=== PATIENT | male | born 2005 | race Two or more races ===

== ENCOUNTER 2024-05-29 17:30 | Emergency (ER) | payer MEDICAID ==
[~2024-05-29] VITALS: Ht 185.4 cm; Wt 61.0 kg
[2024-05-29 17:47] VITALS: O2SAT 99
[2024-05-29 21:10] LABS: CLARITY URINE TURBID (CLEAR); COLOR URINE ORANGE (YELLOW); GLUCOSE URINE NEGATIVE (NEGATIVE); KETONES URINE NEGATIVE (NEGATIVE); LEUKOCYTE ESTERASE URINE 2+ (NEGATIVE); NITRITE URINE POSITIVE (NEGATIVE); OCCULT BLOOD URINE 2+ (NEGATIVE); PH URINE 6.5 (4.5-8.0); PROTEIN URINE 2+ (NEGATIVE); SPECIFIC GRAVITY URINE 1.025 (1.005-1.030)
[2024-05-29 21:28] LABS: BACTERIA URINE 1+; RBC URINE TNTC /hpf (0-2); SQUAMOUS EPITHELIAL CELL URINE FEW /lpf (RARE/1+); WBC URINE 25-50 /hpf (0-2)
[2024-05-29] MEDS ORDERED: NAPR-1176 MT (22:14)
[2024-05-29] MEDS ORDERED: CEPH500C2 MT (22:16)
[2024-05-29] MEDS ORDERED: DOXY100C5 MT (22:16)
[2024-05-29] MEDS: CEFTRIAXONE SODIUM 500MG VIAL IM ONE (22:24)
[2024-05-29 22:29] VITALS: BP 124/79; PULSE 76; RESP 20; TEMP 36.7; O2SAT 97
[2024-06-01 04:07] LABS: CHLAMYDIA TRACHOMATIS NAA Negative (Negative); NEISSERIA GONORRHOEAE NAA Negative (Negative)
== END 2024-05-29 22:28 | disposition home or self-care (01) ==
LOC: ER 17:30
DX: N39.0 Urinary tract infection, site not specified (principal); Z79.1 Long term (current) use of non-steroidal anti-inflammatories (NSAID)
CPT/HCPCS: 99283; 87491; 87591; 81003; 87086; 87186; 87077; 96372; J0696

== ENCOUNTER 2024-09-06 20:45 | Emergency (ER) | payer MEDICAID, OTHER ==
[~2024-09-06] VITALS: Ht 180.3 cm; Wt 65.1 kg
[~2024-09-06 20:45] MED LIST: CEPH500C2 MT; DOXY100C5 MT
[2024-09-06 20:57] VITALS: O2SAT 100
[2024-09-06] MEDS: KETOROLAC 30MG/ML VIAL IM STA (22:42)
[2024-09-06 23:17] LABS: BASOPHILS % 1.2 % (0.0-2.0); EOSINOPHILS % 5.7 % (0.0-5.0); HEMOGLOBIN. 15.6 g/dL (14.0-18.0); LYMPHOCYTES % 53.7 % (20.0-50.0); MEAN CORPUSCULAR HEMOGLOBIN 31.8 pg (28.0-32.0); MEAN CORPUSCULAR HGB CONC 35.4 g/dL (31.0-37.0); MEAN CORPUSCULAR VOLUME 89.9 fL (80.0-94.0); MEAN PLATELET VOLUME 7.1 fl (7.4-10.4); MONOCYTES % 7.6 % (2.0-8.0); NEUTROPHILS % 31.8 % (40.0-76.0); PLATELET 399 x1000/uL (130-400); RED BLOOD CELL COUNT 4.89 mill/uL (4.7-6.1); RED CELL DISTRIBUTION WIDTH 12.3 % (11.6-14.6); WHITE BLOOD COUNT 4.8 x1000/uL (4.5-11.0)
[2024-09-06 23:27] LABS: CHLORIDE 104 mEq/L (98-107); SODIUM 141 mEq/L (136-145)
[2024-09-06 23:28] LABS: CALCIUM 9.8 mg/dL (8.7-10.4); CARBON DIOXIDE 30 mEq/L (21-32)
[2024-09-06 23:33] LABS: CREATININE 1.4 mg/dL (0.6-1.3); GLUCOSE 90 mg/dL (70-105); UREA NITROGEN BLOOD 12 mg/dL (9-23)
[2024-09-06 23:39] LABS: CLARITY URINE TURBID (CLEAR); COLOR URINE YELLOW (YELLOW); GLUCOSE URINE NEGATIVE (NEGATIVE); KETONES URINE TRACE (NEGATIVE); LEUKOCYTE ESTERASE URINE NEGATIVE (NEGATIVE); NITRITE URINE NEGATIVE (NEGATIVE); OCCULT BLOOD URINE NEGATIVE (NEGATIVE); PH URINE >=9.0 (4.5-8.0); PROTEIN URINE TRACE (NEGATIVE); SPECIFIC GRAVITY URINE 1.024 (1.005-1.030); UROBILINOGEN URINE 0.2 E.U./dL (0.2-1.0)
[2024-09-07 00:17] LABS: AMORPHOUS SEDIMENT URINE 3+ /lpf; SQUAMOUS EPITHELIAL CELL URINE NONE SEEN /lpf (RARE/1+)
[2024-09-07 00:18] LABS: BACTERIA URINE 1+; RBC URINE NONE SEEN /hpf (0-2); WBC URINE NONE SEEN /hpf (0-2)
[2024-09-07 01:39] VITALS: BP 100/56; PULSE 79; RESP 18; TEMP 36.7
== END 2024-09-07 01:48 | disposition home or self-care (01) ==
LOC: ER 20:45
DX: R10.9 Unspecified abdominal pain (principal); Z79.899 Other long term (current) drug therapy
CPT/HCPCS: 80048; 81003; 83690; 85025; 36415; 74176; 96372; 99285; J1885; Z7610